=== PATIENT | female | born 1960 | race African-American/Black ===

== ENCOUNTER → 2017-08-02 | Outpatient (CLI) | payer MEDICAID ==
[~2017-08-02] MED LIST: ASPIR 8181 MG PO; BACTRIM DS TAB1 EACH PO; CLARITIN10 M1 PO; DIFLUCAN200 MG PO; DILANTIN 100 M100 MG PO; DIOVAN40 MG PO; IBUPROFEN 800800 M1 PO; JANUMET 50-1,01 EACH PO; KEFLEX500 MG PO; LEXAPRO20 MG PO; MOBIC15 MG PO; PRILOSEC10 MG PO; SINGULAIR 10 MG10 M1 PO; VALIUM5 MG PO; ZYRTEC10 M5 PO
[2017-08-02 09:12] LABS: POTASSIUM 5.2 mmol/L (3.5-5.1)
== END ==
LOC: M.LAB 08:25
PROVIDERS: Anesthesiology
DX: E11.9 Type 2 diabetes mellitus without complications (principal); Z79.899 Other long term (current) drug therapy